=== PATIENT | female | born 1970 | race Two or more races ===

== ENCOUNTER 2020-11-03 12:20 | Inpatient (IN) | payer SELFPAY ==
[~2020-11-03] VITALS: Ht 157.5 cm; Wt 70.2 kg
[2020-11-03 13:24] LABS: Basophils # (auto) 0.1 10 ^3/uL (0-0.2); Basophils % (auto) 0.4 % (0.0-2.0); Eosinophils # (auto) 0.5 10 ^3/uL (0-0.8); Eosinophils % (auto) 3.2 % (0.0-7.0); Hematocrit 51.9 % (36.0-46.0); Lymphocytes # (auto) 1.5 10 ^3/uL (0.4-5.4); Lymphocytes % (auto) 10.6 % (10.0-50.0); Mean Corpuscular Hemoglobin 31.5 pg (28.0-32.0); Mean Corpuscular Hgb Conc. 34.6 g/dL (32.0-36.0); Mean Corpuscular Volume 91.1 fL (80.0-100.0); Monocytes # (auto) 0.7 10 ^3/uL (0-1.3); Monocytes % (auto) 5.1 % (0.0-12.0); Neutrophils # (auto) 11.7 10 ^3/uL (1.6-8.6); Neutrophils % (auto) 80.7 % (37.0-80.0); Red Cell Distribution Width 13.6 % (11.8-14.3); White Blood Cell 14.5 10^3/uL (4.4-10.8)
[2020-11-03 13:40] LABS: Calcium 9.7 mg/dL (8.5-10.1); Potassium 3.2 mmol/L (3.5-5.1)
[2020-11-03 13:43] LABS: Bilirubin, Total 0.7 mg/dL (0.2-1.0); Total Protein 8.4 g/dL (6.4-8.2)
[2020-11-03] MEDS ORDERED: MORPHINE SULFATE INJECTION 2 MG/ML SYRG IV ONE (17:00)
[2020-11-03] MEDS ORDERED: ONDANSETRON HCL 4 MG/2 ML VIAL IV ONE (17:00)
[2020-11-03 17:10] LABS: Urine Bacteria NONE SEEN /hpf (None Seen); Urine Blood TRACE /uL (Negative); Urine Hyaline Cast MOD /lpf (0 - 2); Urine Mucus FEW (None Seen); Urine Specific Gravity 1.025 (1.001-1.035); Urine WBC 8 /hpf (0 - 5)
[2020-11-03] MEDS ORDERED: PANTOPRAZOLE 40 MG/10 ML VIAL INJ IV ONE (18:30)
[2020-11-03] MEDS ORDERED: cefTRIAXone 1GM/50ML D5W 50 ML IV ONE (18:45)
[2020-11-03] MEDS ORDERED: NITROGLYCERIN 0.4 MG SL TAB SL PRN (20:30)
[2020-11-03] MEDS ORDERED: PROMETHAZINE HCL 25 MG/ML 1ML IV PRN (20:30)
[2020-11-03] MEDS: D5W/SOD CHL 0.45%/KCL 20MEQ 1,000 ML IV SCH (20:30)
[2020-11-03] MEDS ORDERED: SODIUM CHLORIDE 0.9% 1,000 ML IV ONE (20:30)
[2020-11-03] MEDS ORDERED: MORPHINE SULFATE INJECTION 2 MG/ML SYRG IV PRN (20:30)
[2020-11-03] MEDS: metroNIDAZOLE 500MG/100ML 100 ML IV SCH (22:08)
[2020-11-03] MEDS: PANTOPRAZOLE 40 MG/10 ML VIAL INJ IV SCH (22:08)
[2020-11-03] MEDS: SUCRALFATE 1 GM/10 ML ORAL SUSP PO SCH (22:08)
[2020-11-03] MEDS: MORPHINE SULFATE INJECTION 2 MG/ML SYRG IV PRN (22:55)
[2020-11-03 23:58] VITALS: BP 97/57
[2020-11-04] VITALS (7 sets, daily range): BP systolic 91–106; BP diastolic 59–73
[2020-11-04] MEDS ORDERED: PNEUMOCOCCAL VACC POLYS 25 MCG/0.5 ML VIAL IM ONE (01:00)
[2020-11-04] MEDS ORDERED: AMOX-277 PO (01:02)
[2020-11-04] MEDS: SUCRALFATE 1 GM/10 ML ORAL SUSP PO SCH ×4 (05:28→21:58)
[2020-11-04] MEDS: metroNIDAZOLE 500MG/100ML 100 ML IV SCH ×3 (05:49→21:58)
[2020-11-04] MEDS: D5W/SOD CHL 0.45%/KCL 20MEQ 1,000 ML IV SCH ×2 (05:50→16:32)
[2020-11-04] MEDS: MORPHINE SULFATE INJECTION 2 MG/ML SYRG IV PRN ×5 (06:08→21:59)
[2020-11-04 06:32] LABS: Basophils # (auto) 0 10 ^3/uL (0-0.2); Basophils % (auto) 0.6 % (0.0-2.0); Eosinophils # (auto) 0.5 10 ^3/uL (0-0.8); Eosinophils % (auto) 5.6 % (0.0-7.0); Hematocrit 42.8 % (36.0-46.0); Hemoglobin 14.7 g/dL (12.2-16.2); Mean Corpuscular Hemoglobin 31.6 pg (28.0-32.0); Mean Corpuscular Hgb Conc. 34.3 g/dL (32.0-36.0); Mean Corpuscular Volume 92.2 fL (80.0-100.0); Monocytes # (auto) 0.6 10 ^3/uL (0-1.3); Monocytes % (auto) 6.5 % (0.0-12.0); Neutrophils # (auto) 5.4 10 ^3/uL (1.6-8.6); Neutrophils % (auto) 63.3 % (37.0-80.0); Nucleated Red Blood Cells % 0.1 %; Red Blood Cells 4.64 10^6/uL (4.0-5.20); Red Cell Distribution Width 13.4 % (11.8-14.3); White Blood Cell 8.5 10^3/uL (4.4-10.8)
[2020-11-04 06:50] LABS: BUN/Creatinine Ratio 21.4; Calcium 8.4 mg/dL (8.5-10.1); Potassium 3.2 mmol/L (3.5-5.1)
[2020-11-04] MEDS: cefTRIAXone 1GM/50ML D5W 50 ML IV SCH (09:24)
[2020-11-04] MEDS: PANTOPRAZOLE 40 MG/10 ML VIAL INJ IV SCH ×2 (09:45→21:58)
[2020-11-04 12:16] LABS: INR 1.03 (0.9-1.15); Partial Thromboplastin Time 25.1 sec (23.0-31.2)
[2020-11-04 14:06] LABS: Alcohol, Urine < 3.0 mg/dL (0-10); Amphetamine Screen, Urine NEGATIVE (NEGATIVE); Barbiturate Scree,Urine NEGATIVE (NEGATIVE); Benzodiazephine Screen, Urine NEGATIVE (NEGATIVE); Cannabinoid Screen, Urine NEGATIVE (NEGATIVE); Cocaine Screen, Urine NEGATIVE (NEGATIVE); Opiate Scree,Urine POSITIVE (NEGATIVE); Phencyclidine Screen, Urine NEGATIVE (NEGATIVE)
[2020-11-05] MEDS ORDERED: LORazepam 2MG/ML-1ML VIAL IV PRN (01:30)
[2020-11-05] MEDS: MORPHINE SULFATE INJECTION 2 MG/ML SYRG IV PRN ×3 (02:59→09:35)
[2020-11-05] MEDS: D5W/SOD CHL 0.45%/KCL 20MEQ 1,000 ML IV SCH (03:03)
[2020-11-05 05:00] VITALS: BP 127/61
[2020-11-05] MEDS: metroNIDAZOLE 500MG/100ML 100 ML IV SCH ×2 (05:52→15:05)
[2020-11-05] MEDS: SUCRALFATE 1 GM/10 ML ORAL SUSP PO SCH ×2 (05:52→09:39)
[2020-11-05 08:15] VITALS: BP 106/71
[2020-11-05 08:52] VITALS: BP 106/71
[2020-11-05] MEDS: PANTOPRAZOLE 40 MG/10 ML VIAL INJ IV SCH (09:34)
[2020-11-05] MEDS: cefTRIAXone 1GM/50ML D5W 50 ML IV SCH (09:35)
[2020-11-05] MEDS ORDERED: LIDOCAINE VISCOUS 2% 15ML UD ONE (09:41)
[2020-11-05] MEDS ORDERED: SODIUM CHLORIDE LOCK 10 ML ONE ×2 (09:41→12:29)
[2020-11-05] MEDS ORDERED: MIDAZOLAM HCL 5 MG/ML-1ML VIAL ONE (09:41)
[2020-11-05] MEDS ORDERED: diphenhdrAMINE HCL 50 MG/1 ML VL ONE (09:42)
[2020-11-05] MEDS ORDERED: fentaNYL CITRATE 100 MCG/2 ML VL ONE ×2 (09:43→12:29)
[2020-11-05] MEDS ORDERED: PROPOFOL 10 MG/ML 20 ML IV ONE (12:29)
[2020-11-05] MEDS ORDERED: MIDAZOLAM HCL 2MG/2ML 2ml VIAL (1mg/ml) ONE (12:29)
[2020-11-05] MEDS ORDERED: ONDANSETRON HCL 4 MG/2 ML VIAL ONE (12:29)
[2020-11-05 13:42] VITALS: BP 112/75
[2020-11-05] MEDS ORDERED: HYDROcodone-ACET 5/325MG TAB PO PRN (15:15)
[2020-11-05] MEDS ORDERED: SUCR1TAB22 PO (15:21)
[2020-11-05] MEDS ORDERED: PANT40T PO (15:21)
[2020-11-05] MEDS ORDERED: PANTOPRAZOLE 40 MG TAB PO SCH (22:00)
== END 2020-11-05 16:30 | disposition home or self-care (01) | DRG 392 ==
LOC: ER 12:20 → TELE 20:23 → TELE-CENTR 23:40
PROVIDERS: ADMIT Nurse Practitioner Acute Care; ATTEND Internal Medicine
PROC: 0DB68ZX Excision of Stomach, Via Natural or Artificial Opening Endoscopic, Diagnostic (ICD-10-PCS; principal; 2020-11-05 12:50)
DX: K29.70 Gastritis, unspecified, without bleeding (principal); E87.6 Hypokalemia; Z20.822 Contact with and (suspected) exposure to COVID-19; E86.0 Dehydration; D72.829 Elevated white blood cell count, unspecified; K44.9 Diaphragmatic hernia without obstruction or gangrene; K05.219 Aggressive periodontitis, localized, unspecified severity; K29.80 Duodenitis without bleeding; K76.0 Fatty (change of) liver, not elsewhere classified; Z86.16 Personal history of COVID-19; Z90.49 Acquired absence of other specified parts of digestive tract; Z82.49 Family history of ischemic heart disease and other diseases of the circulatory system; Z79.899 Other long term (current) drug therapy; Z28.29 Immunization not carried out because of patient decision for other reason
CPT/HCPCS: 36415; 43239; 71045; 74176; 80048; 80053; 80307; 81001; 81025; 84702; 85025; 85610; 85730; 87040; 87426; 93005; 96361; 96365; 96375; C9113; G0378; J0696; J2250; J2405; J2704; J3490

== ENCOUNTER 2022-11-14 14:34 | Emergency (ER) | payer MEDICAID, OTHER ==
[~2022-11-14] VITALS: Ht 157.5 cm; Wt 58.4 kg
[~2022-11-14 14:34] MED LIST: PANT40T PO; SUCR1TAB22 PO
[2022-11-14] MEDS ORDERED: cloNIDine HCL 0.1 MG TAB PO ONE (15:00)
[2022-11-14 15:09] LABS: Urine WBC None Seen /hpf (0 - 5)
[2022-11-14 15:23] LABS: Urine Bacteria FEW /hpf (None Seen); Urine Blood Negative /uL (Negative); Urine Specific Gravity 1.002 (1.001-1.035)
[2022-11-14 15:27] LABS: Basophils # (auto) 0.1 10 ^3/uL (0-0.2); Basophils % (auto) 0.9 % (0.0-2.0); Eosinophils # (auto) 0.1 10 ^3/uL (0-0.8); Eosinophils % (auto) 1.1 % (0.0-7.0); Hemoglobin 16.5 g/dL (12.2-16.2); Lymphocytes # (auto) 1.6 10 ^3/uL (0.4-5.4); Lymphocytes % (auto) 19.2 % (10.0-50.0); Mean Corpuscular Hemoglobin 32.2 pg (28.0-32.0); Mean Corpuscular Hgb Conc. 34.4 g/dL (32.0-36.0); Mean Corpuscular Volume 93.8 fL (80.0-100.0); Monocytes # (auto) 0.5 10 ^3/uL (0-1.3); Monocytes % (auto) 6.1 % (0.0-12.0); Neutrophils # (auto) 6.2 10 ^3/uL (1.6-8.6); Neutrophils % (auto) 72.7 % (37.0-80.0); Red Blood Cells 5.12 10^6/uL (4.0-5.20); Red Cell Distribution Width 13.6 % (11.8-14.3); White Blood Cell 8.5 10^3/uL (4.4-10.8)
[2022-11-14 15:35] LABS: Albumin 4.2 g/dL (3.4-5.0); Calcium 9.8 mg/dL (8.5-10.1)
[2022-11-14 15:45] LABS: BUN/Creatinine Ratio 14.1 (10.0-20.0); Bilirubin, Total 0.5 mg/dL (0.2-1.0); Total Protein 7.4 g/dL (6.4-8.2)
[2022-11-14] MEDS ORDERED: MECLIZINE HCL 25 MG TAB PO ONE (20:00)
[2022-11-14] MEDS ORDERED: IBUPROFEN 600 MG TAB PO ONE (20:00)
[2022-11-14] MEDS ORDERED: SODIUM CHLORIDE 0.9% 1,000 ML IV ONE (20:00)
[2022-11-14] MEDS ORDERED: ONDANSETRON ODT 4 MG TAB PO ONE (20:00)
[2022-11-14] MEDS ORDERED: MECL1TAB42 PO (22:19)
[2022-11-14] MEDS ORDERED: IBUP600T28 PO (22:19)
[2022-11-14] MEDS ORDERED: ONDA-144 PO (22:19)
[2022-11-15 00:46] VITALS: BP 106/73
== END 2022-11-15 00:47 | disposition home or self-care (01) ==
LOC: ER 14:34
DX: R42 Dizziness and giddiness (principal); R07.89 Other chest pain; R51.9 Headache, unspecified; I10 Essential (primary) hypertension; Z90.49 Acquired absence of other specified parts of digestive tract
CPT/HCPCS: 36415; 70450; 71045; 72070; 80053; 81001; 84484; 85025; 93005; 96360; 96361; 99285; J7030; J8597; Q0162

== ENCOUNTER 2025-02-28 22:07 | Emergency (ER) | payer MEDICAID ==
[~2025-02-28] VITALS: Ht 154.9 cm; Wt 66.0 kg
[~2025-02-28 22:07] MED LIST changes: +IBUP1TAB5 PO; +MECL1TAB42 PO; +ONDA-144 PO; -SUCR1TAB22 PO; +SUCR1TAB31 PO
--- NOTE | 2025-02-28 22:33 | ED.PDOC ---
History of Present Illness HPI Comments 54-year-old female presents to ER with complaints of flu-like symptoms x2 days. Patient reports that she has been experiencing n/v/d, lower back pain and intermittent frontal headache x 2 days. Denies use of medications for current symptoms and rates her current pain a 7/10. Patient presents to ER ambulatory on arrival with low grade fever at 99.8 F, in mild distress. Patient states "I think I have COVID". 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 History Family History Family History: Unknown, Family hx of HTN Social History Smoker: Non-Smoker Alcohol: Denies ETOH Use Drugs: Denies Drug Use Lives In: Home Constitutional: See HPI EENTM: No Symptoms Reported Respiratory: No Symptoms Reported Cardiovascular: No Symptoms Reported Gastrointestinal: See HPI Genitourinary: No Symptoms Reported Neurological: No Symptoms Reported Musculoskeletal: No Symptoms Reported Integumentary: No Symptoms Reported Allergic/Immunocompromised: others (DENIES) Hematologic/Lymphatic: No Symptoms Reported Endocrine: No Symptoms Reported Physical Exam General Appearance: Mild Distress HEENT: Normal ENT Inspection, PERRL/EOMI, Pharynx Normal, TMs Normal Neck: Full Range of Motion, Non-Tender, Normal Respiratory: Chest Non-Tender, Lungs Clear, No Accessory Muscle Use, No Respiratory Distress, Normal Breath Sounds Cardiovascular: No Murmur, No Gallop, Tachycardia Breast Exam: Deferred Gastrointestinal: Non Tender, No Pulsatile Mass, Soft Genitalia: Deferred Pelvic: Deferred Rectal: Deferred Extremities: Normal capillary refill, Normal range of motion Musculoskeletal : Extremity Location: Back (NO CVA TENDERNESS/TTP TO BILATERAL FLANKS NOTED BILATERALLY. 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 Was a procedure done?: No Sedation Sedation?: No Fever Differential Dx Differential Diagnosis: Pneumonia, Pharyngitis, Other (COVID-19, INFLUENZA) X-Ray, Labs, Meds, VS Vital Signs Date Time Temp Pulse Resp B/P (MAP) Pulse Ox O2 Delivery O2 Flow Rate FiO2 02/28/25 23:29 99.8 02/28/25 22:10 99.8 118 20 106/76 98 99.8 Lab Test 02/28/25 22:54 02/28/25 22:28 Range/Units Urine Color Light-orange Yellow Urine Clarity Turbid H Clear Urine pH 6.0 5.0-9.0 Urine Specific [place] 1.016 1.001-1.035 Urine Protein 1+ H Negative Urine Ketones 2+ H Negative Urine Blood 3+ H Negative /uL Urine Nitrite Negative Negative Urine Bilirubin Negative Negative Urine Urobilinogen 2 H Negative mg/dL Urine Leukocyte Esterase 3+ Negative /uL Urine RBC 65 0 - 4 /hpf Urine WBC Clumps Present None Seen /hpf Urine Microscopic WBC 1055 H 0-5 /HPF Urine Squamous Epithelial Cells Mod <5 /hpf Urine Bacteria Few H None Seen /hpf Urine Hyaline Casts Few 0 - 2 /lpf Urine Mucus Few None Seen Urine Glucose Normal Normal mg/dL Influenza Type A Antigen Negative Negative Influenza Type B Antigen Negative Negative SARS-CoV-2 Antigen (Rapid) Negative NEGATIVE Current Medications Medications (Trade) Dose Ordered Sig/Gin Route Start Time Stop Time Status Last Admin Acetaminophen (Tylenol Tablet) 650 mg ONCE ONCE PO 02/28/25 22:30 02/28/25 22:31 DC 02/28/25 23:29 Ondansetron HCl (Zofran Po) 4 mg ONCE ONCE PO 02/28/25 22:30 02/28/25 22:31 DC 02/28/25 23:30 Sodium Chloride 1,000 ml @ 1,000 mls/hr Q1H ONCE IV 02/28/25 22:30 02/28/25 23:29 DC 02/28/25 23:28 HEP-LOCK IV ORDERED NS 1 L IV ORDERED TYLENOL 650 MG P.O. ORDERED ZOFRAN 4 MG P.O. ORDERED ROCEPHIN 1 G IM ORDERED ZOFRAN 4 MG P.O. ORDERED SWAB RESULTS REVIEWED-NEGATIVE URINALYSIS REVIEWED-URINE LEUKOCYTE ESTERASE 3+, URINE BLOOD 3+, URINE NITRITES NEGATIVE PATIENT HAD IMPROVEMENT IN SYMPTOMS, TOLERATING P.O. INTAKE WELL, AFEBRILE AND NONTOXIC APPEARING/IN NO DISTRESS PRIOR TO DISCHARGE DIET EDUCATION DISCUSSED ADVISED TO FOLLOW UP WITH PCP IN 1-2 DAYS PATIENT VERBALIZED UNDERSTANDING AND AGREEABLE WITH CURRENT PLAN OF CARE ADVISED TO RETURN TO ER IMMEDIATELY IF SYMPTOMS WORSE Time of 1ST Reevaluation: 22:32 Reevaluation 1ST: N/A Time of 2ND Reevaluation: 01:08 Reevaluation 2ND: Improved Patient Education/Counseling: Diagnosis, Treatment, Prognosis, Need For Follow Up Family Education/Counseling: No Family Present SEPSIS Sepsis Screen Date sepsis recognized/suspect: Feb 28, 2025 Time Sepsis recognized/suspect: 2213 Recent Procedure: No On Antibiotic Therapy: No Respiratory Rate >20: No Heart Rate >90: Yes Temp<36 C (96.8 F) or >38.3 C: No SBP <90 or MAP <65 mmHG: No New Acute Mental Status Change: No Is the patient on CPAP, BIPAP,: No Physician Orders Heplock Iv (02/28/25 ) Ceftriaxone Sodium (Rocephin) (03/01/25 01:15) Vital Signs Date Time Temp Pulse Resp B/P (MAP) Pulse Ox O2 Delivery O2 Flow Rate FiO2 02/28/25 23:29 99.8 02/28/25 22:10 99.8 118 20 106/76 98 99.8 Medications Medications Dose Ordered Sig/Gin Route Start Time Stop Time Status Last Admin Dose Admin Acetaminophen 650 mg ONCE ONCE PO 02/28/25 22:30 02/28/25 22:31 DC 02/28/25 23:29 Ondansetron HCl 4 mg ONCE ONCE PO 02/28/25 22:30 02/28/25 22:31 DC 02/28/25 23:30 Sodium Chloride 1,000 ml @ 1,000 mls/hr Q1H ONCE IV 02/28/25 22:30 02/28/25 23:29 DC 02/28/25 23:28 Departure 1 Departure Time of Disposition: 01:10 Impression: Primary Impression: UTI (urinary tract infection) Qualified Codes: N30.01 - Acute cystitis with hematuria Disposition: 01 HOME / SELF CARE / HOMELESS Condition: Stable e-Prescriptions Ondansetron Odt 4MG Tab (ZOFRAN PO) 4 Mg Tb 4 MG PO Q8HPRN, #14 TAB 0 Refills ODT TAB-DISSOLVE IN MOUTH, THEN SWALLOW Prov: MIKAYLA LANDEROS 03/01/25 Acetaminophen (Acetaminophen) 500 Mg Tab 500 MG PO Q4HPRN, #30 TAB 0 Refills Prov: MIKAYLA LANDEROS 03/01/25 Ciprofloxacin Hcl (Ciprofloxacin Hcl) 500 Mg Tab 1 TAB PO BID for 7 Days, #14 TAB 0 Refills Prov: MIKAYLA LANDEROS 03/01/25 Discharged With: Significant Other Critical Care Note Critical Care Time?: No Stability Stability form required: No Heart Score Heart Score: Heart Score Response (Comments) Value History N/A 0 EKG N/A 0 Age N/A 0 Risk Factors N/A 0 Troponin N/A 0 Total 0 MIKAYLA LANDEROS Feb 28, 2025 22:33
[2025-02-28 23:00] LABS: COVID19 ANTIGEN SOFIA FIA NEGATIVE (NEGATIVE)
[2025-02-28] MEDS: SODIUM CHLORIDE 0.9% 1,000 ML IV ONE (23:28)
[2025-02-28] MEDS: ACETAMINOPHEN 325 MG TAB PO ONE (23:29)
[2025-02-28] MEDS: ONDANSETRON ODT 4 MG TAB PO ONE (23:30)
[2025-03-01] MEDS ORDERED: ZOFR4T PO (00:09)
[2025-03-01] MEDS ORDERED: CIPR500T4 PO (00:09)
[2025-03-01] MEDS ORDERED: ACET500T58 PO (00:09)
[2025-03-01 01:01] LABS: Urine Protein, UAD 1+ (Negative); Urine WBC Clumps PRESENT /hpf (None Seen)
[2025-03-01 01:14] VITALS: BP 99/66; PULSE 96; RESP 20; TEMP 99.4; O2SAT 96
[2025-03-01] MEDS: cefTRIAXone SOD 1,000 MG VL IM ONE (01:15)
[2025-03-01] MEDS: ONDANSETRON ODT 4 MG TAB PO ONE (01:15)
== END 2025-03-01 01:25 | disposition home or self-care (01) ==
LOC: ER 22:07
DX: N39.0 Urinary tract infection, site not specified (principal); Z20.822 Contact with and (suspected) exposure to COVID-19; Z90.49 Acquired absence of other specified parts of digestive tract; Z79.899 Other long term (current) drug therapy
CPT/HCPCS: 36415; 81001; 87426; 87804; 96360; 96372; 99284; J0696; J7030; Q0162